=== PATIENT | female | born 2000 | race Caucasian/White ===

== ENCOUNTER → 2020-08-02 | Outpatient (REF) | payer OTHER ==
[2020-08-02 16:43] LABS: BASO # 0.1 10^3/uL (0.0-0.2); BASO % 0.9 % (0.0-1.0); EOS # 0.4 10^3/uL (0.0-0.5); EOS % 6.3 % (0.0-3.0); HEMATOCRIT 41.3 % (36.0-47.0); HEMOGLOBIN 13.2 g/dl (12.0-15.5); LYMPH # 1.9 10^3/uL (1.5-5.0); LYMPH % 31.5 % (24.0-44.0); MEAN CORPUSCULAR HEMOGLOBIN 29.9 pg (27.0-33.0); MEAN CORPUSCULAR VOLUME 93.4 fl (80.0-96.0); MONO # 0.5 10^3/uL (0.0-0.8); NEUTROPHILS # 3.1 10^3/uL (1.5-8.5); PLATELET COUNT, AUTOMATED 198 10^3/uL (150-450); RED BLOOD COUNT 4.42 10^6/uL (4.00-5.40); WHITE BLOOD COUNT 5.9 10^3/uL (4.0-10.0)
[2020-08-02 17:17] LABS: ALBUMIN 3.8 GM/DL (3.2-5.2); ALT/SGPT 23 U/L (12-78); BILIRUBIN,TOTAL 0.3 MG/DL (0.2-1.0); BLOOD UREA NITROGEN 12 MG/DL (7-18); CALCIUM LEVEL 8.9 MG/DL (8.5-10.1); CARBON DIOXIDE LEVEL 27 MEQ/L (21-32); CHLORIDE LEVEL 109 MEQ/L (98-107); CREATININE FOR GFR 0.87 MG/DL (0.55-1.30); FREE T4 1.03 NG/DL (0.78-1.33); GLUCOSE, FASTING 93 MG/DL (70-100); POTASSIUM SERUM 3.8 MEQ/L (3.5-5.1); SODIUM LEVEL 141 MEQ/L (136-145); THYROID PEROXIDASE ANTIBODY 42.7 U/ML (<60.0); TOTAL PROTEIN 6.6 GM/DL (6.4-8.2)
[2020-08-02 17:27] LABS: HEPATITIS B SURFACE ANTIGEN NEGATIVE (NEGATIVE)
[2020-08-02 17:55] LABS: HEPATITIS C VIRUS ABY INDEX 0.1 INDEX (<0.8)
[2020-08-02 18:49] LABS: ERYTHROCYTE SEDIMENTATION RATE 5 mm/hr (0-20)
== END ==
LOC: M SFHCRHEU 13:57
PROVIDERS: ATTEND Internal Medicine
DX: M45.7 Ankylosing spondylitis of lumbosacral region (principal)
CPT/HCPCS: 80053; 84439; 84443; 85025; 85652; 86140; 86376; 86480; 86704; 86803; 87340; G0463

== ENCOUNTER 2021-02-22 07:10 | Outpatient (CLI) | payer OTHER ==
[~2021-02-22] VITALS: Ht 165.1 cm; Wt 92.7 kg
[2021-02-22 07:30] VITALS: BP 123/69
[2021-02-22] MEDS ORDERED: MULTTAB20 PO (07:32)
[2021-02-22 08:53] LABS: APPEARANCE, URINE CLEAR (CLEAR); BACTERIA, URINE AUTO 1+ (NEGATIVE); BILIRUBIN, URINE AUTO NEGATIVE (NEGATIVE); BLOOD, URINE BLOOD 3+ (NEGATIVE); COLOR, URINE STRAW (YELLOW); GLUCOSE, URINE (UA) AUTO NEGATIVE (NEGATIVE); KETONE, URINE AUTO NEGATIVE (NEGATIVE); LEUKOCYTE ESTERASE, URINE AUTO NEGATIVE (NEGATIVE); MUCUS, URINE SMALL (NEGATIVE); NITRITE, URINE AUTO NEGATIVE (NEGATIVE); PROTEIN, URINE AUTO NEGATIVE (NEGATIVE); RBC, URINE AUTO 123 /HPF (0-3); SPECIFIC GRAVITY URINE AUTO 1.003 (1.002-1.035); SQUAMOUS EPITHELIAL CELL UR AU 0 /HPF (0-6); UROBILINOGEN, URINE AUTO 0.2 mg/dL (0.0-2.0); WBC, URINE AUTO 3 /HPF (0-3)
[2021-02-22 09:07] VITALS: BP 144/63
== END 2021-02-22 10:30 | disposition home or self-care (01) ==
LOC: M LDO 07:10
PROVIDERS: ATTEND Obstetrics & Gynecology
DX: O23.43 Unspecified infection of urinary tract in pregnancy, third trimester (principal); Z3A.29 29 weeks gestation of pregnancy
CPT/HCPCS: 59025; 81001; 87088; 87186; 87491; 87591; G0378; G0463

== ENCOUNTER → 2021-02-27 | Outpatient (REF) | payer OTHER ==
[~2021-02-27] MED LIST: MULTTAB20 PO
--- NOTE | 2021-02-28 09:41 | ECHO ---
ECHOCARDIOGRAM DATE OF PROCEDURE: 02/27/2021 Age: Gender: Height: 165 cm Weight: 95 kg REFERRING PHYSICIAN: Dr. Pedro Davenport. INDICATION: Palpitations, . MEASUREMENTS: IVS 0.9 cm LV 4.7 cm LVPW 0.7 cm LA 2.8 cm Aorta 3.0 cm Mitral E wave velocity 98 A wave 42 E prime septal 12.2 E prime lateral 22.1 FINDINGS: This study is of acceptable technical quality. Underlying sinus rhythm. Left ventricle is normal size and has normal systolic function, estimated EF approximately 55 to 60%. Right ventricle is also normal size and systolic function. Both atria appear normal. All four cardiac valves are reasonably well seen and appear normal. No pericardial effusion is noted. Inferior vena cava is normal size. Aortic root and aortic arch appear normal. Abdominal aorta was not well seen. Doppler interrogation reveals competent aortic valve. There is trace mitral, tricuspid, and pulmonic insufficiency. Mitral inflow pattern and tissue Doppler imaging of mitral annulus revealed normal diastolic function. CONCLUSIONS: 1. Study is of acceptable technical quality, underlying sinus rhythm. 2. Normal LV size with preserved LV systolic and diastolic function. 3. Competent aortic valve. 4. Trace mitral, tricuspid, and pulmonic insufficiency. 5. Normal central venous pressure. 6. Unable to estimate pulmonary artery pressure. COMMENTS: Essentially normal echocardiogram.
== END ==
LOC: EDSTATUS 10:30 → M CARPUL 10:43
PROVIDERS: ATTEND Internal Medicine
DX: R00.2 Palpitations (principal)

== ENCOUNTER 2021-03-02 09:18 | Outpatient (CLI) | payer OTHER ==
[~2021-03-02] VITALS: Ht 165.1 cm; Wt 93.2 kg
[2021-03-02] VITALS (14 sets, daily range): BP systolic 91–136; BP diastolic 52–82
[2021-03-02] MEDS ORDERED: ACET-907 PO (09:42)
[2021-03-02] MEDS ORDERED: COLA100C5 PO (09:42)
[2021-03-02] MEDS ORDERED: TUMS500C PO (09:42)
[2021-03-02] MEDS ORDERED: cefTRIAXone SOD 1GM VIAL (J0696 PER 250MG) IM ONE (09:55)
[2021-03-02] MEDS ORDERED: LIDOCAINE 1% MDV 20ML VIAL IM ONE (09:55)
[2021-03-02] MEDS ORDERED: PROMETHAZINE INJ 25 MG/ML VIAL (J2550) IV ONE (11:10)
[2021-03-02] MEDS: LR 1,000 ML IV SCH ×4 (11:42→15:07)
[2021-03-02] MEDS ORDERED: PROMETHAZINE 25 MG TAB PO ONE (12:00)
[2021-03-02] MEDS ORDERED: ACETAMINOPHEN 500 MG TAB PO ONE (12:00)
[2021-03-02] MEDS ORDERED: ACETAMINOPHEN *IV* 1,000 MG in IV 1 EA IV ONE (12:00)
[2021-03-02] MEDS ORDERED: PROMETHAZINE INJ 25 MG/ML VIAL (J2550) IV PRN (15:15)
[2021-03-02 15:52] LABS: MEAN CORPUSCULAR HEMOGLOBIN 28.7 pg (27.0-33.0); MEAN CORPUSCULAR HGB CONC 32.3 g/dl (32.0-36.5); MEAN CORPUSCULAR VOLUME 88.8 fl (80.0-96.0); PLATELET COUNT, AUTOMATED 202 10^3/uL (150-450); RED BLOOD COUNT 3.49 10^6/uL (4.00-5.40); WHITE BLOOD COUNT 15.2 10^3/uL (4.0-10.0)
[2021-03-02] MEDS ORDERED: CEFOTAXIME SOD IV SCH (16:05)
[2021-03-02] MEDS ORDERED: D5W MINI IV SCH (16:05)
--- NOTE | 2021-03-02 16:23 | IPNPDOC ---
Text Note Date of Service The patient was seen on 03/02/21. NOTE 20 yo at 30+5 weeks gestation who presented to L&D with the complaint of severe back pain, UTI symptoms, and nausea/vomiting. She denied any vaginal bleeding or leakage of fluid or contractions. She endorsed movement. Urine culture from one week ago resulted in streptococcus vestibularis that has confirmed sensitivity to cefotaxime, clindamycin, and vancomycin. She was afebrile on presentation and clinically did not appear toxic. She received one dose of 1gm ceftriaxone (indeterminate sensitivity). She was PO intolerant however and had persistent vomiting. Thus, it was recommended that she stay in the hospital for 24 hours of observation. FHR tracing - Cat I with +accels, no decels. She has received Tylenol, phenergan, and IV fluids. She failed a PO challenge and vomited shortly after water intake. WBC - 15.2 Plan to start 300mg IV Clindamycin Q6H based on confirmed sensitivities. Will also maintain continuous IV fluids. Tylenol and phenergan for pain/nausea. She will not require continuous monitoring at this time. Advance diet as tolerated. Will monitor closely. 30 minutes Delia Pineda, I+O Delia KIDD, I+O Laboratory Tests 03/02/21 15:35 Vital Signs Date Time Temp Pulse Resp B/P (MAP) Pulse Ox O2 Delivery O2 Flow Rate FiO2 03/02/21 15:40 98.5 95 20 116/58 (77) 98 03/02/21 09:37 Room Air CORNELIA CULVER DO Mar 02, 2021 16:22
[2021-03-02] MEDS ORDERED: ACETAMINOPHEN *IV* 1,000 MG in IV 1 EA IV PRN (18:00)
[2021-03-02] MEDS: CLINDAMYCIN 300 MG in IV 1 EA IV SCH (18:02)
[2021-03-02] MEDS ORDERED: ONDANSETRON 4MG/2ML VIAL IV PRN (21:05)
[2021-03-02] MEDS ORDERED: CYCLOBENZAPRINE 10MG TABLET PO PRN (21:10)
[2021-03-02 21:56] LABS: ALBUMIN 2.2 GM/DL (3.2-5.2); ALT/SGPT 12 U/L (12-78); BILIRUBIN,TOTAL 0.3 MG/DL (0.2-1.0); BLOOD UREA NITROGEN 10 MG/DL (7-18); CALCIUM LEVEL 7.8 MG/DL (8.5-10.1); CARBON DIOXIDE LEVEL 21 MEQ/L (21-32); CHLORIDE LEVEL 105 MEQ/L (98-107); CREATININE FOR GFR 0.99 MG/DL (0.55-1.30); GLOMERULAR FILTRATION RATE > 60.0 (>60); GLUCOSE, FASTING 98 MG/DL (70-100); POTASSIUM SERUM 3.7 MEQ/L (3.5-5.1); SODIUM LEVEL 136 MEQ/L (136-145); TOTAL PROTEIN 5.3 GM/DL (6.4-8.2)
[2021-03-03] VITALS: BP 119/56
[2021-03-03] MEDS: CLINDAMYCIN 300 MG in IV 1 EA IV SCH ×3 (00:02→11:39)
[2021-03-03 04:02] VITALS: BP 92/51
[2021-03-03 04:09] VITALS: BP 99/53
--- NOTE | 2021-03-03 07:14 | IPNPDOC ---
Text Note Date of Service The patient was seen on 03/03/21. NOTE Eveline is a 20 yo at 30+6 weeks gestation who was observed overnight in the hospital for severe back pain, PO intolerance, and likely pyelonephritis. She was started in IV clindamycin (confirmed sensitivities) and given analgesics and antiemetics. No acute events overnight. Ms. Silverio is currently sleeping soundly in bed. Vitals - VSS, afebrile, normotensive, HR 90s-100s. General - Sleeping soundly FHR tracing - Has been Cat I with +accels, no decels Pending morning CMP and CBC. Nausea has improved overnight and she hasn't had any vomiting after midnight. Pain is much improved. Will do another PO challenge today. If she cannot tolerate PO then she may need to be converted to inpatient status. Ultimately she will need to sheepskin pickler her PO abx at the [facility] pharmacy when she does go home. Continue NSTs as scheduled. Franky VS,Delia, I+O VS, Delia, I+O Laboratory Tests 03/02/21 15:35 03/02/21 21:19 Vital Signs Date Time Temp Pulse Resp B/P (MAP) Pulse Ox O2 Delivery O2 Flow Rate FiO2 03/03/21 04:09 100 99/53 (68) 03/03/21 04:02 98.0 18 97 Room Air I&O- Last 24 Hours up to 6 AM 03/03/21 06:00 Intake Total 1665 ml Output Total 1450 ml Balance 215 ml CORNELIA CULVER DO Mar 03, 2021 07:14
[2021-03-03 07:37] LABS: HEMATOCRIT 27.4 % (36.0-47.0); HEMOGLOBIN 8.9 g/dl (12.0-15.5); MEAN CORPUSCULAR HEMOGLOBIN 28.4 pg (27.0-33.0); MEAN CORPUSCULAR HGB CONC 32.5 g/dl (32.0-36.5); MEAN CORPUSCULAR VOLUME 87.5 fl (80.0-96.0); PLATELET COUNT, AUTOMATED 185 10^3/uL (150-450); RED BLOOD COUNT 3.13 10^6/uL (4.00-5.40); WHITE BLOOD COUNT 15.3 10^3/uL (4.0-10.0)
[2021-03-03 07:53] LABS: ALBUMIN 2.2 GM/DL (3.2-5.2); ALT/SGPT 8 U/L (12-78); BILIRUBIN,TOTAL 0.3 MG/DL (0.2-1.0); BLOOD UREA NITROGEN 8 MG/DL (7-18); CARBON DIOXIDE LEVEL 21 MEQ/L (21-32); CHLORIDE LEVEL 108 MEQ/L (98-107); GLOMERULAR FILTRATION RATE > 60.0 (>60); GLUCOSE, FASTING 94 MG/DL (70-100); POTASSIUM SERUM 3.6 MEQ/L (3.5-5.1); SODIUM LEVEL 138 MEQ/L (136-145); TOTAL PROTEIN 5.1 GM/DL (6.4-8.2)
[2021-03-03 08:07] VITALS: BP 122/65
[2021-03-03] MEDS: LR 1,000 ML IV SCH ×2 (08:42)
[2021-03-03] MEDS: ACETAMINOPHEN 500 MG TAB PO PRN ×2 (08:43→14:19)
[2021-03-03 11:39] VITALS: BP 107/57
[2021-03-03 14:07] VITALS: BP 117/55
== END 2021-03-03 14:45 | disposition home or self-care (01) ==
LOC: M LDO 09:18 → UNDOADMOB 16:10 → M LDI 16:10 → M OBS 16:11 → M LDI 03-03 13:46 → M OBS 03-03 13:46 → M LDO 03-03 14:45 → UNDODISOB 03-03 14:45
PROVIDERS: ATTEND Registered Nurse
DX: O26.893 Other specified pregnancy related conditions, third trimester (principal); Z3A.30 30 weeks gestation of pregnancy; M54.5 Low back pain; O23.43 Unspecified infection of urinary tract in pregnancy, third trimester; R63.8 Other symptoms and signs concerning food and fluid intake
CPT/HCPCS: 36415; 59025; 80053; 85027; 96361; 96365; 96366; 96372; 96374; 96375; G0463; J0131; J0696

== ENCOUNTER 2021-05-15 05:02 | Inpatient (IN) | payer OTHER ==
[2021-05-15] VITALS (55 sets, daily range): BP systolic 85–145; BP diastolic 50–80
[~2021-05-15] VITALS: Ht 165.1 cm; Wt 101.5 kg
[~2021-05-15 05:02] MED LIST changes: +ACET-907 PO; +COLA100C5 PO; +TUMS500C PO
[2021-05-15] MEDS ORDERED: HOME MED LIST COMPLETE! XX SCH (06:25)
[2021-05-15] MEDS ORDERED: LIDOCAINE 1% MDV 20ML VIAL INFIL PRN ×2 (06:50→14:15)
[2021-05-15] MEDS ORDERED: OXYTOCIN DRIP 30 UNITS in IV 1 EA IV PRN ×5 (06:50→14:15)
[2021-05-15 09:34] LABS: HEMATOCRIT 32.7 % (36.0-47.0); HEMOGLOBIN 10.3 g/dl (12.0-15.5); MEAN CORPUSCULAR HGB CONC 31.5 g/dl (32.0-36.5); MEAN CORPUSCULAR VOLUME 79.4 fl (80.0-96.0); PLATELET COUNT, AUTOMATED 228 10^3/uL (150-450); RED BLOOD COUNT 4.12 10^6/uL (4.00-5.40); WHITE BLOOD COUNT 12.4 10^3/uL (4.0-10.0)
--- NOTE | 2021-05-15 10:44 | HPEPDOC ---
Obstetrical History & Physical General Date of Admission May 15, 2021 at 08:21 History of Present Illness Chief Complaint: Patient is a 20yo at 41+2 wks gestation who presents to L&D for IOL due to late term. Patient presents: Spouse HPI: Reports trae since last night at 2300 with contractions becoming more intense around 0800 this am. No LOF or vaginal bleeding. Does report increase in cervical mucous discharge. Good movement. Denies any headaches, vomiting, RUQ pain. Denies any dysuria, vaginal di scharge, vaginal itching/burning. ROS: GEN: Feeling Fine. Denies fevers, chills. Head: Denies Headaches, facial pain, or sinus pressure. Eyes: Denies change in vision/ scotomata/blurred vision. ENT: Denies sore throat. Denies ear pain or pressure. Denies nasal discharge. Resp: Denies SOB/KELLY, cough, or wheezing. Card: Denies palpitations or Chest pain. GI: Denies vomiting, constipation. Reporting nausea since contractions started and diarrhea this am. No abdominal pain. Taking medication for heartburn. MSK: Denies calf pain. Lymph: Denies edema to upper or lower extremities bilaterally. ALLERGIES: No allergic/immunologic symptoms. NKDA- Reviewed Dating Final EDC: May 06, 2021 Final EDC for Daily Update: May 06, 2021 Final EDC by: LMP LMP: Jul 30, 2020 Antepartum Course Diagnos(e)s 1. Ankylosing Spondylitis 2. Pyelonephritis February 2021 3. Anemia of - on iron daily 4. Overweight with Excessive Weight Gain of 5. Tobacco Use- 5 years. Quit February 2021. Height (inches): 65 Pre- weight (lbs.): 155 Admission Weight (lbs.): 217 Change in Weight (lbs.): 62 Past Medical History Past Obstetrical History : Past Obstetrical History: Primgravida Past Medical History Medical History Ankylosing Spondylitis. Previously on cetrolizumab, stopped February 2021. Surgical History: [place] teeth, Other (Foot) Family History Family History Mother: Ankylosing Spondylitis MGM: Diabetes Social History Social history Denies hx of abuse or alcohol use. Hx vaping x5 years. Marital Status: Psychosocial History: No pertinent psych hx * Smoker: former Smoker Abuse Violence Screening Have you been hit/kicked/slapp: No Have you been sexually assault: No Imunizations Tdap status: current Influenza Status: current Allergies Coded Allergies: No Known Allergies (Unverified , 02/22/21) Medications Scheduled Calcium Carbonate (Tums) 200 Mg Tab.chew, 2 TAB PO Q4H for heartburn No122/Iron/Folic Acid ( Multi Tablet) 1 Each Tablet, 1 TAB PO DAILY Physical Examination Physical Examination Exam: General: Well-appearing, in no acute distress. Uncomfortable with contractions, breathing well. PSYCH: Well groomed. Appropriate affect, normal mood. Conversed easily. Neuro: Oriented to time, place, and person. RESP: Lungs clear to auscultation bilaterally without wheezes, rales or rhonchi. Unlabored breathing. CV: Normal RRR, no murmur, c/w normal . No edema to bilateral upper and lower extremities. Negative calf tenderness. ABD: Gravid. Soft, non-tender. BS normal x4 quad. Uterus non-tender. MSK: Normal mvmt all extremities. Steady gait. Ida from a seated position without assistance. SKIN: Dry, intact. Genitalia: External Genitalia showed no abnormalities, without lesions. No vaginal discharge was observed. No unusual odors. Obstetrical: Clinical Pelvimetry: Pelvis adequate, untested. FHR: 135 rate, moderate variability, accelerations present, no decelerations. Contractions 2-3 min, moderate in palpation. VTX by Robert EFW: 4000gm SVE: 1/thick/high, posterior/medium Community Health Coordinator present for exam: Ms. Trang RN Vital Signs/I&O Vital Signs Date Time Temp Pulse Resp B/P (MAP) Pulse Ox O2 Delivery O2 Flow Rate FiO2 05/15/21 05:42 98.2 93 18 107/77 (87) Laboratory Data CBC/BMP Laboratory Tests 05/15/21 09:00 Pertinent Laboratoy Data Blood Type: O+ RBC Antibody Screen: Negative HIV: Negative Hepatitis B: Negative Hepatitis C: Unknown Rapid Plasma Reagin: Nonreactive Rubella: Immune Varicella: Immune Chlamydia/Gonorrhea: Negative Group B Streptococcus: Negative Quad Screen Test: Negative Cystic Fibrosis: Negative Glucose Tolerance Test: 119 Anatomy Ultrasound Ultrasound Date: Dec 19, 2020 Placenta Location: Posterior (Limited views face) Normal Anatomy: Yes Estimated Weight (grams): 343 Other Ultrasounds [id number] F/U to complete anatomy, WNL coronal nose/lip. Still suboptimal views of facial profile but thought grossly unremarkable. EFW 737gm 51%. Assessment/Plan Assessment 20yo at 41+2 wks gestation presents to L&D for Induction due to late term gestation O positive/GBS negative/RI/ VSS Benign physical exam FHR Cat 1 tracing VTX by Robert EFW: 4000gm SVE: 1/thick/high, posterior/medium PLAN: Admit, labs, IV, consent completed Address pain needs as the arise, patient plans epidural for pain management in labor. May have IV pain medications while block bulb in place. Intermittent EFM while Block bulb in place. Regular diet Plan to start IOL process with block bulb. Double lumen block bulb placed at 1026 using speculum. Filled with 80/80ml Normal Saline. Ctx too frequent for concurrent cytotec placement. Anticipate Consult physician service as needed Labor and Delivery Counseling Reviewed with patient the following with the patient in regards to vaginal delivery (Deliver through the vaginal canal): The purpose of the procedure is to deliver a baby. There may be maternal risks involved with vaginal delivery to include but not limited to: -Use of the medications to induce or augment labor with the risks of uterine rupture -Artificial rupture of the amniotic sac with the risk of cord prolapse -Internal monitors with the associate risks of infection or fever -Infection, which is fever during the labor process -IV pain management, anesthesia as indicated and associated risks with those medications -Vaginal lacerations and repair, episiotomy and repair when needed -Injury to the baby or mother at the time of delivery, -Maternal organ damage, maternal or infant -Prolonged hospitalized -Possible painful intercourse, chronic pelvic pain In addition to these maternal risks, there may be other possible risks involved in this procedure including, but not limited to: bleeding with the possible need for blood transfusion. Risks of blood transfusion can include but are not limited to: possible transfusion reaction, virus transmission. The likelihood of a successful outcome for this procedure is: Good Reviewed with patient the generally recognized and accepted practical alternatives to this procedure and the accompanying risks are: -Possible emergent Section with its risk of damage to internal organs and necessary repairs, laceration to the baby and necessary repairs -Possible operative vaginal delivery to include forceps or vacuum assist, resulting in: maternal tissue damage, baby bruising, hematoma, scalp swelling, scalp laceration, skull fracture, facial paralysis and its repair Reviewed with patient the practice of medicine is not an exact science and that no guarantees can be made to the patient concerning the results of this procedure, nor guarantees to the effect this procedure will have on underlying medical issues. Reviewed with patient that during the course of labor, it may be necessary or appropriate to perform additional procedure(s) which were unforeseen or not known to be needed at the time of admission. MICHELLE GALEAS CNM May 15, 2021 08:51
[2021-05-15] MEDS ORDERED: CARBOPROST TROMETHAMINE 250 MCG/ML AMP IM PRN (14:15)
[2021-05-15] MEDS ORDERED: BUTORPHANOL 2 MG/ML INJ (J0595) IV PRN (14:15)
[2021-05-15] MEDS ORDERED: PROMETHAZINE INJ 25 MG/ML VIAL (J2550) IV PRN (14:15)
[2021-05-15] MEDS ORDERED: TRANEXAMIC ACID INJection 1,000 MG in NS 100 ML IV PRN (14:15)
[2021-05-15] MEDS ORDERED: METHYLERGONOVINE MALEATE 0.2 MG/ML VIAL (J2210) IM PRN (14:15)
[2021-05-15] MEDS ORDERED: OXYTOCIN DRIP 30 UNITS in IV 1 EA IV SCH (14:15)
--- NOTE | 2021-05-15 14:32 | IPNPDOC ---
Obstetrical Progress Note Date of Service May 15, 2021 Subjective De Anda bulb reported falling out at 1135. Reporting more intense contractions. Tub makes contraction pain better. Spouse at for support. Objective Vital Signs Label Value Date Time Patient Temperature 97.6 degrees F 05/15/21 1042 Temperature Source Temporal 05/15/21 1042 Pulse 92 05/15/21 1042 Respiratory Rate 20 bpm 05/15/21 1042 Blood Pressure Assessment 135/80 (98) 05/15/21 1042 Source Automatic Cuff (NIBP) Blood Pressure Assessment 131/74 (93) 05/15/21 1148 Source Automatic Cuff (NIBP) Respiratory Rate 18 bpm 05/15/21 1148 Pulse 71 05/15/21 1148 Patient Temperature 96.6 degrees F 05/15/21 1148 Temperature Source Temporal 05/15/21 1148 Item Value Date Time Oxygen Delivery Method Room Air 05/15/21 1042 Oxygen Delivery Method Room Air 05/15/21 1148 Vital Signs Date Time Temp Pulse Resp B/P (MAP) Pulse Ox O2 Delivery O2 Flow Rate FiO2 05/15/21 11:48 96.6 71 18 131/74 (93) Room Air Item Value Date Time White Blood Count 12.4 10^3/uL H 05/15/21 0900 Red Blood Count 4.12 10^6/uL 05/15/21 0900 Hemoglobin 10.3 g/dl L 05/15/21 0900 Hematocrit 32.7 % L 05/15/21 09 Mean Corpuscular Volume 79.4 fl L 05/15/21 09 Mean Corpuscular Hemoglobin 25.0 pg L 05/15/21899 Mean Corpuscular Hemoglobin Concent 31.5 g/dl L 05/15/21 0900 Red Cell Distribution Width 15.1 % H 05/15/21 0900 Platelet Count 228 10^3/uL 05/15/21 0900 Assessment Heart Rate (FHR): 135 Variability: Moderate Accelerations: Present Decelerations: None Heart Rate Tracing: Category I Tocometer Contractions: Yes Frequency: regular, every 2-5 min. Duration: greater than 60 seconds Strength: palpated as moderate Sterile Vaginal Examination Dilation: 2cm Effacement (%): 50% Station: -3 Cervical Consistency: Medium Cervical Position: Middle Assessment and Plan Additional Comments A/P 20yo G 1 P 0 at 41+2 wks gestation admitted today for IOL due to late term. O positive/GBS negative/RI/ VSS FHR Cat 1 tracing, reassuring SVE: /-3, middle/mod. De Anda bulb has come out. Suspect was not all way in cervix, however good effacement since initial exam this am. Continues to contract. Plan to continue IOL with pitocin at this time and AROM when able. IV stadol/phenergan ordered for pain as needed. Does eventually want epidural. Anticipate Consult physician service as needed MICHELLE GALEAS CNM May 15, 2021 14:32
[2021-05-15] MEDS: LR 1,000 ML IV SCH (14:44)
[2021-05-15] MEDS ORDERED: OXYTOCIN 30 UNITS IN 0.9% NaCl 500ML IV BAG (J2590) As Ordered ONE (14:49)
[2021-05-15] MEDS ORDERED: FENTANYL 2MCG/ML ROPIVACAINE 0.2% IN 0.9% NACL 100ML IVBAG As Ordered ONE (19:03)
[2021-05-15] MEDS ORDERED: REFRIGERATOR IV KEYS XX PRN (20:00)
[2021-05-15] MEDS ORDERED: FENTANYL/ROPIVACAINE/NACL BAG 100 ML EPIDURAL SCH (20:00)
[2021-05-15] MEDS ORDERED: EPIDURAL COMMENT XX SCH (20:00)
[2021-05-15] MEDS ORDERED: NALOXONE INJ 0.4MG/1ML VIAL (J2310 PER 1MG) IV PRN (20:00)
[2021-05-15] MEDS ORDERED: ePHEDrine SULFATE 25 MG/5 ML(5MG/ML) SYRINGE IV PRN (20:00)
[2021-05-15] MEDS ORDERED: diphenhydrAMINE 50MG/ML VIAL (J1200) IV PRN (20:00)
[2021-05-15] MEDS ORDERED: LACTATED RINGER'S 1000 ML IV PRN (20:00)
[2021-05-15] MEDS ORDERED: ONDANSETRON 4MG/2ML VIAL IV PRN (20:00)
[2021-05-15] MEDS ORDERED: EPIDURAL/PCA KEYS XX PRN (20:00)
[2021-05-16] VITALS (31 sets, daily range): BP systolic 81–159; BP diastolic 47–81
--- NOTE | 2021-05-16 01:30 | IPNPDOC ---
Obstetrical Progress Note Date of Service May 16, 2021 Objective Vital Signs Date Time Temp Pulse Resp B/P (MAP) Pulse Ox O2 Delivery O2 Flow Rate FiO2 05/15/21 23:38 100 122/57 (78) 05/15/21 20:08 97.6 05/15/21 18:45 18 05/15/21 15:16 Room Air Assessment and Plan Additional Comments To room for interval assessment. Patient has an epidural in place. Patient has been on pitocin in latent labor. Prior provider SVE was at 1135 and was 2/50/-3. She has since had a period of pitocin shut of for periods of bradycardia associated with her epidural placement. This resolved to category 1 and pitocin was restarted. It is currently at 6. Patient SROMed in the room while preparing for exam at 0115. Her SVE was 3/50/-3. The NST has been mostly CAT I but occasionally CAT I for variable decelerations. Although the variability is moderate and the NST is overall reassuring. Will continue IOL with pitocin. MITZI CHAKRABORTY DO May 16, 2021 01:30
[2021-05-16] MEDS: LR 1,000 ML IV SCH ×4 (02:02→20:16)
[2021-05-16] MEDS ORDERED: FENTANYL 2MCG/ML ROPIVACAINE 0.2% IN 0.9% NACL 100ML IVBAG As Ordered ONE (04:12)
--- NOTE | 2021-05-16 04:17 | IPNPDOC ---
Obstetrical Progress Note Date of Service May 16, 2021 Objective Vital Signs Date Time Temp Pulse Resp B/P (MAP) Pulse Ox O2 Delivery O2 Flow Rate FiO2 05/15/21 23:38 100 122/57 (78) 05/15/21 20:08 97.6 05/15/21 18:45 18 05/15/21 15:16 Room Air Assessment and Plan Additional Comments To room for assessment of prolonged deceleration to 90s. Variability remained moderate. Return to baseline at 145 occurred followed by accelerations. Pitocin was halved and the patient was repositioned. SVE ./-2 FSE/IUPC placed. MITZI CHAKRABORTY DO May 16, 2021 04:17
--- NOTE | 2021-05-16 06:22 | IPNPDOC ---
Obstetrical Progress Note Date of Service May 16, 2021 Objective Vital Signs Date Time Temp Pulse Resp B/P (MAP) Pulse Ox O2 Delivery O2 Flow Rate FiO2 05/15/21 23:38 100 122/57 (78) 05/15/21 20:08 97.6 05/15/21 18:45 18 05/15/21 15:16 Room Air Assessment and Plan Additional Comments To room for assessment of intermittent late decels. Overall reassuring with m oderate variability. SVE 6/75/-2. Cervical swelling appreciated. Discussed swelling with patient and expectations for labor curve in active labor. Continue IOL with pitocin. MITZI CHAKRABORTY DO May 16, 2021 06:22
[2021-05-16] MEDS ORDERED: TRANEXAMIC ACID INJection 1,000 MG in NS 100 ML IV PRN (08:20)
[2021-05-16] MEDS ORDERED: BICITRA 30ML SOLN UDC PO ONE (08:20)
[2021-05-16] MEDS ORDERED: OXYTOCIN DRIP 30 UNITS in IV 1 EA IV PRN (08:20)
[2021-05-16] MEDS ORDERED: METHYLERGONOVINE MALEATE 0.2 MG/ML VIAL (J2210) IM PRN (08:20)
[2021-05-16] MEDS ORDERED: CARBOPROST TROMETHAMINE 250 MCG/ML AMP IM PRN (08:20)
--- NOTE | 2021-05-16 08:38 | IPNPDOC ---
Text Note Date of Service The patient was seen on 05/16/21. NOTE Eveline is a 20 yo at 41+3 weeks gestation who was admitted yesterday mo rning for an IOL for late term gestation. Her induction was started with a cook balloon and then followed by pitocin. She has had an intermittent Cat II tracing essentially throughout her entire labor course. She received an epidural yesterday and her membranes spontaneously ruptured late last night. She has had numerous late and variable heart rate decelerations. This was significant enough that her pitocin was stopped around ~0600 this AM. FHR has been mostly Cat I since stopping pitocin. Eveline reports feeling well this AM. She denies any pain. Chaperoned by RN Vitals - VSS, afebrile, normotensive, non tachycardic Cervix - 5/60/-2. Cervix is swollen. There is caput. I offered restarting pitocin for labor augmentation vs section now for persistent Cat II FHR tracing remote from delivery. Eveline discussed with her and they desired to proceed with section. We discussed all risks of surgery to include, but not limited to, bleeding requiring blood transfusion, risk of infection, risk of injury to bowel, bladder, or other structures which could require additional surgery, risk of injury to baby, risk of needing a hysterectomy as life saving measure due to persistent bleeding, and even risk of . She verbalized understanding of these risks and elected to proceed. Ancef, Azithromycin, bicitra ordered. Anesthesia notified. scallop shucker to the OR. All patient and questions answered. Delia Pineda, I+O Delia KIDD, I+O Laboratory Tests 05/15/21 09:00 Vital Signs Date Time Temp Pulse Resp B/P (MAP) Pulse Ox O2 Delivery O2 Flow Rate FiO2 05/15/21 23:38 100 122/57 (78) 05/15/21 20:08 97.6 05/15/21 18:45 18 05/15/21 15:16 Room Air I&O- Last 24 Hours up to 6 AM 05/16/21 06:00 Intake Total 1800 ml Output Total 950 ml Balance 850 ml CORNELIA CULVER DO May 16, 2021 08:38
[2021-05-16] MEDS ORDERED: ceFAZolin SOD 2 GM in IV 1 EA IV ONE (08:40)
[2021-05-16] MEDS ORDERED: AZITHROMYCIN INJ 500 MG, VIAL MATE ADAPTER 1 EACH in NS 250 ML IV ONE (08:40)
[2021-05-16] MEDS ORDERED: LIDOCAINE 2% W/EPINEPHRINE 20ML VIAL **PRES FREE As Ordered ONE (09:57)
[2021-05-16] MEDS ORDERED: OXYTOCIN INJ 10 UNITS/ML VIAL (J2590) As Ordered ONE (09:57)
[2021-05-16] MEDS ORDERED: MORPHINE PRES-FREE INJ 10 MG/10 ML VIAL (J2274) As Ordered ONE (10:14)
[2021-05-16] MEDS ORDERED: diphenhydrAMINE 50MG/ML VIAL (J1200) IV PRN (10:20)
[2021-05-16] MEDS ORDERED: NALBUPHINE HCL 10 MG/ML AMP (J2300) IV PRN (10:20)
[2021-05-16] MEDS ORDERED: METOCLOPRAMIDE INJ 10MG/2ML VIAL (J2765 PER 1) IV PRN ×2 (10:20→11:20)
[2021-05-16] MEDS ORDERED: NALOXONE INJ 0.4MG/1ML VIAL (J2310 PER 1MG) IV PRN ×2 (10:20)
[2021-05-16] MEDS ORDERED: ONDANSETRON 4MG/2ML VIAL IV PRN ×2 (10:20→11:20)
[2021-05-16] MEDS ORDERED: ONDANSETRON 4MG/2ML VIAL As Ordered ONE (10:25)
[2021-05-16 10:30] LABS: CORD GAS ABE V -3.5; CORD GAS HCO3 V 22.2 MEQ/L; CORD GAS O2 SAT V 41.2 %; CORD GAS PCO2 V 42.5 mmHg; CORD GAS PH V 7.336 UNITS; CORD GAS PO2 V 19.7 mmHg; CORD GAS SBC V 20.2 MEQ/L; CORD GAS TCO2 V 23.5 MEQ/L
[2021-05-16 10:32] LABS: CORD GAS ABE A -1.5; CORD GAS HCO3 A 25.8 MEQ/L; CORD GAS O2 SAT A 19.3 %; CORD GAS PCO2 A 53.3 mmHg; CORD GAS PH A 7.302 UNITS; CORD GAS PO2 A 12.9 mmHg; CORD GAS SBC A 21.4 MEQ/L; CORD GAS TCO2 A 27.4 MEQ/L
[2021-05-16] MEDS ORDERED: OXYTOCIN DRIP 30 UNITS in IV 1 EA IV SCH (10:50)
[2021-05-16] MEDS ORDERED: RHOGAM 300 MCG (1500 IU) INJ (J2790) IM SCH (10:50)
[2021-05-16] MEDS ORDERED: SIMETHICONE 80MG CHEW TAB PO PRN (10:50)
[2021-05-16] MEDS ORDERED: MEASLES,MUMPS,RUBELLA VACCINE INJ (MMR-II) (90707) SC SCH (10:50)
[2021-05-16] MEDS ORDERED: MOM 30ML SUSPENSION UDC PO PRN (10:50)
[2021-05-16] MEDS ORDERED: PROMETHAZINE 25 MG TAB PO PRN (10:50)
[2021-05-16] MEDS ORDERED: OXYTOCIN 30 UNITS IN 0.9% NaCl 500ML IV BAG (J2590) As Ordered ONE (11:16)
[2021-05-16] MEDS ORDERED: fentaNYL 100 MCG/2 ML INJECTION (J3010) IV PRN (11:20)
[2021-05-16] MEDS ORDERED: MEPERIDINE INJ 25 MG/ML VIAL (J2175) IV PRN (11:20)
[2021-05-16] MEDS ORDERED: oxyCODONE 5MG TAB PO PRN (11:20)
[2021-05-16] MEDS ORDERED: KETOROLAC 30 MG/ML 1ML VIAL IV PRN (11:20)
[2021-05-16] MEDS ORDERED: LR 1,000 ML IV SCH (11:20)
[2021-05-16] MEDS ORDERED: KETOROLAC 30 MG/ML 1ML VIAL As Ordered ONE (11:24)
[2021-05-16] MEDS: KETOROLAC 30 MG/ML 1ML VIAL IV SCH ×2 (11:27→18:05)
--- NOTE | 2021-05-16 14:44 | RO ---
OPERATIVE NOTE DATE OF OPERATION: 05/16/2021 PREOPERATIVE DIAGNOSIS: Persistent category II FHR tracing remote from delivery. POSTOPERATIVE DIAGNOSIS: Thick meconium, macrosomia. PROCEDURE: Primary low transverse section. SURGEON: Dr. Wilkins SPINNING FRAME TENDER: Alicia Metzger CNM, whose assistance with exposure, retraction, and visualization was essential to completion of the case. INTRAVENOUS FLUIDS: 1000 mL lactated Ringer (LR). ANESTHESIA: Epidural. URINE: 100 mL via De Anda catheter. ESTIMATED BLOOD LOSS: 600 mL. OPERATIVE FINDINGS: Viable male found and delivered in cephalic presentation. Thick meconium-stained fluid. scores 8 and 9. Obviously macrosomic . weight 4570 grams, or 10 pounds 1 ounce. Uterus normal in appearance. Fallopian tubes and ovaries normal appearing bilaterally. Normal placenta. DETAILED PROCEDURE DESCRIPTION: The risks, benefits, indications, and alternatives of the procedure were reviewed with the patient and informed consent was obtained. The patient was taken to the operating room where epidural anesthesia was noted to be adequate. She was then prepped and draped in the usual sterile fashion in the dorsal supine position with a leftward tilt. A surgical time-out was then performed and the patient's identity and planned procedure were verified with the operative team. A Pfannenstiel skin incision was then made with a scalpel and carried through to the underlying layer of fascia. The fascia was incised in the midline and the incision was extended laterally with Jarrell scissors. The superior aspect of the facial incision was grasped with Junaid clips, elevated, and the underlying rectus muscles were dissected off bluntly and with the scalpel. Attention was then turned to the inferior aspect of this incision, which in a similar fashion was grasped, tented up with Junaid clamps, and the rectus muscles were dissected off via blunt dissection and with Jarrell scissors. The rectus muscles were then in the midline. The peritoneum was identified, tented up, and entered digitally. The peritoneal incision was then extended horizontally and superiorly with good visualization of the bladder. A Mobius self-retaining retractor was then introduced into the abdomen as a means for exposure. The vesicouterine peritoneum was then identified and grasped with pickups. Metzenbaum scissors were then used to create a bladder flap. Next, the lower uterine segment was incised in a transverse fashion with the scalpel. Thick meconium-stained fluid was noted upon entry into the uterus. The uterus incision was then extended manually. The infant was found to be in cephalic presentation. The baby was then delivered without difficulty through the hysterotomy. The cord was then doubly clamped and cut. Cord gases were obtained. The infant was then handed off to the awaiting team. The placenta was then removed manually with gentle traction on the umbilical cord. The uterus was then cleared of all clots and debris. The uterine incision was then repaired with 0 Monocryl suture in a running-locked fashion. A second layer of 0 Monocryl was then used to imbricate the hysterotomy in a vertical fashion. Inspection revealed excellent hemostasis. Irrigation was then performed. The Mobius self-retaining retractor was then removed from the patient's abdomen. The hysterotomy was again inspected and noted to be completely hemostatic. The patient's peritoneum was then closed with a running 3-0 Vicryl suture. The rectus muscles were then loosely reapproximated with interrupted suture of 3-0 Vicryl. The fascia was then closed with 0 Vicryl suture in a running fashion. The subcutaneous fat was then closed in a running fashion with 3-0 Vicryl suture. The skin was then closed with 4-0 Monocryl suture in subcuticular fashion on a Cesar needle. The incision was then dressed with Steri-Strips and an Optifoam dressing was applied. At the completion of the case a bimanual exam was performed which revealed good uterine tone and minimal vaginal bleeding. The patient tolerated the procedure well. The sponge, instrument, and needle counts were correct times three. The patient tolerated the procedure well and was taken to the recovery room in stable condition. MINA
[2021-05-16] MEDS: oxyCODONE 5MG TAB PO PRN (15:44)
[2021-05-17] MEDS: KETOROLAC 30 MG/ML 1ML VIAL IV SCH ×2 (00:07→05:43)
[2021-05-17 02:30] VITALS: BP 135/46
[2021-05-17] MEDS: LR 1,000 ML IV SCH (04:14)
[2021-05-17 06:00] VITALS: BP 135/80
[2021-05-17 06:50] LABS: HEMATOCRIT 25.2 % (36.0-47.0); MEAN CORPUSCULAR HEMOGLOBIN 25.1 pg (27.0-33.0); MEAN CORPUSCULAR HGB CONC 30.6 g/dl (32.0-36.5); MEAN CORPUSCULAR VOLUME 82.1 fl (80.0-96.0); PLATELET COUNT, AUTOMATED 158 10^3/uL (150-450); RED BLOOD COUNT 3.07 10^6/uL (4.00-5.40); WHITE BLOOD COUNT 11.6 10^3/uL (4.0-10.0)
[2021-05-17 06:54] LABS: HEMOGLOBIN 7.7 g/dl (12.0-15.5)
--- NOTE | 2021-05-17 07:07 | IPNPDOC ---
Progress Note Date of Service: May 17, 2021 Progress Note Eveline is a 20 yo G1 now P1 who underwent an uncomplicated PLTCS yesterday morning for Persistent Cat II tracing after being admitted for an IOL for late term the day prior. Overnight she was unable to void on her own so her block catheter was replaced. She reports feeling well today other than some abdominal soreness. She is ambulating and tolerating a regular diet. Lochia is minimal. Vitals - VSS, afebrile, normotensive, nontachycardic General - AAOX3, sitting up in bed, NAD Abdomen - Fundus firm at U-2. No fundal tenderness. Optifoam dressing in place over incision. Minimal strikethrough. No tenderness to palpation. Extremities - 1+ edema in lower extremities. UO - Appropriate Labs: Pre op H/H 10.3/32.7 ---> post op H/H this AM 7.7/25.2 Eveline is doing well and is making an appropriate postoperative / recovery. Will remove block and again attempt DTV today. Continue to encourage ambulation. Continue routine postoperative care. Anticipate discharge home tomorrow. All questions answered. Cornelia Wilkins, DO VS, I&O, 24H, Delia Vital Signs/I&O Vital Signs Date Time Temp Pulse Resp B/P (MAP) Pulse Ox O2 Delivery O2 Flow Rate FiO2 05/17/21 06:00 97.6 92 20 135/80 (98) 99 Room Air I&O- Last 24 Hours up to 6 AM 05/17/21 05:59 Intake Total 5927.9 ml Output Total 2130 ml Balance 3797.9 ml Laboratory Data 24H LABS Laboratory Tests 2 05/16/21 10:22: Cord Arterial Blood pH 7.302, Cord Arterial Blood PCO2 53.3, Cord Arterial Blood PO2 12.9, Cord Arterial Blood HCO3 25.8, Cord Arterial Blood Total CO2 27.4, Cord Arterial Blood Base Excess -1.5, Cord Arterial Base Excess (Standard 21.4, Cord Arterial Bld Oxygen Saturation 19.3, Cord Venous Blood pH 7.336, Cord Venous Blood PCO2 42.5, Cord Venous Blood PO2 19.7, Cord Venous Blood HCO3 22.2, Cord Venous Blood Total CO2 23.5, Cord Venous Base Excess (Actual) -3.5, Cord Venous Base Excess (Standard) 20.2, Cord Venous Blood Oxygen Saturation 41.2 05/17/21 06:27: Nucleated Red Blood Cells % (auto) 0.0 CBC/BMP Laboratory Tests 05/17/21 06:27 CORNELIA WILKINS DO May 17, 2021 07:07
[2021-05-17] MEDS: oxyCODONE 5MG TAB PO PRN ×3 (08:26→23:27)
[2021-05-17] MEDS: ACETAMINOPHEN 500 MG TAB PO PRN ×2 (08:26→17:10)
[2021-05-17 10:02] VITALS: BP 144/82
[2021-05-17] MEDS: PRENATAL VITAMINS CHEWABLE TABLET PO SCH (11:11)
[2021-05-17] MEDS: IBUPROFEN 800 MG TAB PO SCH ×2 (13:58→21:31)
[2021-05-17 14:00] VITALS: BP 128/75
[2021-05-17 18:12] VITALS: BP 133/70
[2021-05-17 22:00] VITALS: BP 138/72
[2021-05-18 02:00] VITALS: BP 122/70
[2021-05-18] MEDS: ACETAMINOPHEN 500 MG TAB PO PRN ×2 (02:57→08:45)
[2021-05-18] MEDS: IBUPROFEN 800 MG TAB PO SCH (05:57)
[2021-05-18 05:58] VITALS: BP 134/69
--- NOTE | 2021-05-18 07:08 | OBDS ---
[facility] Obstetrical Discharge Sum. Obstetrical Discharge Summary Date: May 18, 2021 Labor Patient initially admitted for IOL for post-dates, and delivered via section due to persistent Cat II tracing - see op note below: DATE OF OPERATION: 05/16/2021 PREOPERATIVE DIAGNOSIS: Persistent category II FHR tracing remote from delivery. POSTOPERATIVE DIAGNOSIS: Thick meconium, macrosomia. PROCEDURE: Primary low transverse section. SURGEON: Dr. Wilkins ZINC PLATING MACHINE OPERATOR: Alicia Metzger CNM, whose assistance with exposure, retraction, and visualization was essential to completion of the case. INTRAVENOUS FLUIDS: 1000 mL lactated Ringer (LR). ANESTHESIA: Epidural. URINE: 100 mL via [place] catheter. ESTIMATED BLOOD LOSS: 600 mL. OPERATIVE FINDINGS: Viable male found and delivered in cephalic presentation. Thick meconium-stained fluid. scores 8 and 9. Obviously macrosomic . weight 4570 grams, or 10 pounds 1 ounce. Uterus normal in appearance. Fallopian tubes and ovaries normal appearing bilaterally. Normal placenta. Delivery Day of discharge note: Eveline is a 20 yo G1 now P1 POD#2 s/p an uncomplicated PLTCS for Persistent Cat II tracing after being admitted for an IOL for late term the day prior. She is ambulating and tolerating a regular diet. Lochia is minimal. and plans on minipill for contraception. Declines circumcision for baby. Vitals - VSS, afebrile, normotensive, nontachycardic General - AAOX3, sitting up in bed, NAD Abdomen - Fundus firm at U-2. No fundal tenderness. Optifoam dressing in place over incision. Minimal strikethrough. No tenderness to palpation. Extremities - 1+ edema in lower extremities. UO - Appropriate Labs: Pre op H/H 10.3/32.7 ---> post op H/H 7.7/25.2. Pt asymptomatic Eveline is doing well and is making an appropriate postoperative / recovery. Continue to encourage ambulation. Continue routine postoperative care. Anticipate discharge home today. All questions answered. A/P, Post Course List any complications Admission diagnosis: 41+3wks gestation Discharge diagnosis: s/p delivery Condition at Discharge: stable Discharge Instructions: home Activity: no heavy lifting and nothing per vagina x6wks Diet: regular Medications: tylenol, motrin prn pain Follow-up: call for follow up at 2wks and 6wks. Strict return precautions given LES DALY M.D. May 18, 2021 07:08
[2021-05-18] MEDS: PRENATAL VITAMINS CHEWABLE TABLET PO SCH (08:45)
== END 2021-05-18 12:00 | disposition home or self-care (01) | DRG 773 ==
LOC: M LDO 05:02 → M LDI 08:21 → M OBS 05-16 12:46
PROVIDERS: ADMIT Advanced Practice Midwife; ATTEND Obstetrics & Gynecology
PROC: 3E033VJ Introduction of Other Hormone into Peripheral Vein, Percutaneous Approach (ICD-10-PCS; 2021-05-15)
PROC: 10D00Z1 Extraction of Products of Conception, Low, Open Approach (ICD-10-PCS; principal; 2021-05-16 11:01)
DX: O48.0 Post-term pregnancy (principal); Z3A.41 41 weeks gestation of pregnancy; O99.02 Anemia complicating childbirth; D64.9 Anemia, unspecified; O26.03 Excessive weight gain in pregnancy, third trimester; O76 Abnormality in fetal heart rate and rhythm complicating labor and delivery; O77.0 Labor and delivery complicated by meconium in amniotic fluid; O36.63X0 Maternal care for excessive fetal growth, third trimester, not applicable or unspecified; Z37.0 Single live birth